=== PATIENT | male | born 1945 | race Two or more races ===

== ENCOUNTER 2018-11-20 09:20 | Outpatient (CLI) | payer MEDICARE, OTHER ==
--- NOTE | 2018-11-20 11:36 | Diagnostic Imaging Report ---
Indication: Double vision Technique: The head was imaged in a 1.5 Peggy magnet. Sequences obtained include sagittal and axial T1 FLAIR, axial T2 fast spin echo with fat saturation, axial T2 FLAIR, diffusion and ADC map. Gadolinium-enhanced axial and coronal T1 FLAIR obtained also. Comparison: None Findings: There is mild prominence of the sulci, ventricles, and basal cisterns consistent with atrophy. Mild, nonspecific T2 hyperintensity noted within white matter. This may be due to chronic small vessel disease. No abnormal enhancement is identified. There is no restricted diffusion. Rocha-white differentiation is normal. There is no mass effect, midline shift, edema, or hemorrhage. There are no abnormal extra-axial or intra-axial fluid collections. The corpus callosum and sella are unremarkable. The brainstem and cerebellum are unremarkable. Bone marrow signal within the visualized osseous structures appears age appropriate and unremarkable otherwise. There is mild mucosal thickening within paranasal sinuses. T2 hyperintense signal noted in the right mastoid region. Impression: No acute intracranial findings. Age-related findings including atrophy and evidence of chronic small vessel disease involving white matter tracts. Sinusitis. Mild right mastoiditis
== END 2018-11-20 11:20 | disposition home or self-care (01) ==
LOC: MRI 09:20
DX: H53.2 Diplopia (principal)
CPT/HCPCS: 70553; A9585